=== PATIENT | female | born 1985 | race Caucasian/White ===

== ENCOUNTER 2020-09-21 14:31 | Emergency (ER) | payer BC ==
[~2020-09-21] VITALS: Ht 165.1 cm; Wt 106.6 kg
[2020-09-21] MEDS ORDERED: PREDNISONE PO (14:47)
[2020-09-21] MEDS ORDERED: AMBIEN 10 MG TA10 MG PO (14:48)
[2020-09-21] MEDS ORDERED: DESYREL150 MG PO (14:48)
[2020-09-21 17:08] LABS: HEMATOCRIT 40.1 % (37.0-47.0); HEMOGLOBIN 13.2 gm/dL (12.0-15.0); MCH 30.7 pg (26.0-34.0); MCHC 32.9 g/dL (28.0-37.0); MCV 93.3 fL (80.0-100.0); MPV 6.7 fl. (7.2-11.1); NUCLEATED RBCS 0 /100WBC; PLATELET COUNT* 268 thou/uL (150-400); RDW-CV 13.5 % (10.5-14.5); WBC 11.3 thou/uL (4.0-11.0)
[2020-09-21 17:23] LABS: CALCIUM 8.5 mg/dL (8.5-10.1); CREATININE 0.8 mg/dL (0.6-1.3); POTASSIUM 4.1 mmol/L (3.5-5.1)
[2020-09-21 17:27] LABS: ALBUMIN 3.6 g/dL (3.4-5.0); TOTAL BILIRUBIN 0.4 mg/dL (<0.1-1.0); TOTAL PROTEIN 6.8 g/dL (6.4-8.2)
[2020-09-21 17:37] LABS: ABSOLUTE MONOCYTES 0.1 thou/uL (0.0-1.2); ABSOLUTE NEUTROPHILS 10.2 thou/uL (1.6-8.1); PLATELET ESTIMATE ADEQUATE
[2020-09-21] MEDS ORDERED: PREDNISONE 20 M20 MG PO ×2 (19:15→19:17)
[2020-09-21] MEDS ORDERED: FAMOTIDINE 20 M20 MG PO ×2 (19:15→19:17)
[2020-09-21] MEDS ORDERED: BENADRYL25 MG PO ×2 (19:15→19:17)
[2020-09-21 19:31] VITALS: BP 105/70
== END 2020-09-21 19:32 | disposition home or self-care (01) ==
LOC: M.ERS 14:31
PROVIDERS: Nurse Practitioner Family
DX: L50.9 Urticaria, unspecified (principal); T78.49XA Other allergy, initial encounter; Z88.5 Allergy status to narcotic agent; Z88.8 Allergy status to other drugs, medicaments and biological substances; X58.XXXA Exposure to other specified factors, initial encounter

== ENCOUNTER 2021-03-15 14:55 | Emergency (ER) | payer BC ==
[~2021-03-15] VITALS: Ht 165.1 cm; Wt 104.3 kg
[~2021-03-15 14:55] MED LIST: AMBIEN 10 MG TA10 MG PO; BENADRYL25 MG PO; DESYREL150 MG PO; FAMOTIDINE 20 M20 MG PO; PREDNISONE 20 M20 MG PO; PREDNISONE PO
[2021-03-15 15:57] LABS: ABSOLUTE LYMPHOCYTES 1.5 thou/uL (0.8-5.3); ABSOLUTE MONOCYTES 0.3 thou/uL (0.0-1.2); ABSOLUTE NEUTROPHILS 2.4 thou/uL (1.6-8.1); BASOPHILS 0.6 %; EOSINOPHILS 0.2 %; HEMATOCRIT 38.9 % (37.0-47.0); HEMOGLOBIN 13.1 gm/dL (12.0-15.0); LYMPHOCYTES 35.4 %; MCH 30.1 pg (26.0-34.0); MCHC 33.8 g/dL (28.0-37.0); MCV 89.2 fL (80.0-100.0); MONOCYTES 7.6 %; MPV 6.8 fl. (7.2-11.1); NUCLEATED RBCS 0 /100WBC; PLATELET COUNT* 199 thou/uL (150-400); POLYS 56.2 %; RBC 4.35 mil/uL (4.20-5.00); RDW-CV 13.8 % (10.5-14.5); WBC 4.2 thou/uL (4.0-11.0)
--- NOTE | 2021-03-15 16:03 | EKG ---
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: : 1985 Requested By: Zeus Jones Order Number: [id number] MD: Filiberto Ovalle Measurements Intervals [place] Rate: 98 P: 50 MI: 164 QRS: -4 QRSD: 97 T: -22 QT: 346 QTc: 442 Interpretive Statements Sinus rhythm Probable left atrial enlargement Left ventricular hypertrophy Borderline T abnormalities, diffuse leads No previous ECG available for comparison Electronically Signed On 03-15-2021 16:02:47 CDT by Filiberto Ovalle [email or web address] <ELECTRONICALLY SIGNED> By: Filiberto Ovalle MD, [facility] 03/15/21 1602 1527 152 Filiberto Ovalle MD, [facility] /EPI
[2021-03-15 16:06] LABS: CREATININE 0.8 mg/dL (0.6-1.3)
[2021-03-15 16:10] LABS: ALBUMIN 3.2 g/dL (3.4-5.0); POTASSIUM 2.9 mmol/L (3.5-5.1); TOTAL BILIRUBIN 0.6 mg/dL (<0.1-1.0); TOTAL PROTEIN 6.5 g/dL (6.4-8.2)
[2021-03-15] MEDS ORDERED: DECADRON6 MG PO (18:09)
[2021-03-15] MEDS ORDERED: PROAIR HFA8.5 GM INH (18:09)
[2021-03-15 18:27] VITALS: BP 114/82
== END 2021-03-15 18:29 | disposition home or self-care (01) ==
LOC: M.ERS 14:55
PROVIDERS: Physician Assistant
DX: U07.1 COVID-19 (principal); Z90.49 Acquired absence of other specified parts of digestive tract; Z79.899 Other long term (current) drug therapy; Z88.5 Allergy status to narcotic agent

== ENCOUNTER 2021-03-18 13:34 | Emergency (ER) | payer BC ==
[~2021-03-18] VITALS: Ht 165.1 cm; Wt 104.3 kg
[~2021-03-18 13:34] MED LIST changes: +DECADRON6 MG PO; +PROAIR HFA8.5 GM INH
[2021-03-18 14:58] VITALS: BP 107/75
== END 2021-03-18 14:59 | disposition left against medical advice (07) ==
LOC: M.ERS 13:34
DX: R06.02 Shortness of breath (principal); Z53.21 Procedure and treatment not carried out due to patient leaving prior to being seen by health care provider